=== PATIENT | male | born 1945 | race African-American/Black ===

== ENCOUNTER 2021-06-27 07:05 | Emergency (ER) | payer MEDICARE, OTHER ==
[~2021-06-27] VITALS: Ht 182.9 cm; Wt 80.0 kg
[2021-06-27] MEDS ORDERED: AMLODIPINE 10MG TABLET PO ONE (07:30)
[2021-06-27 08:08] LABS: HEMATOCRIT. 45.3 % (42.0-52.0); MEAN CORPUSCULAR VOLUME 93.4 fL (80.0-94.0); MEAN PLATELET VOLUME 8.7 fl (7.4-10.4); PLATELET 184 x1000/uL (130-400); RED BLOOD CELL COUNT 4.85 mill/uL (4.7-6.1); RED CELL DISTRIBUTION WIDTH 12.8 % (11.6-14.6)
[2021-06-27 08:21] LABS: CHLORIDE 104 mEq/L (98-107)
[2021-06-27 08:43] LABS: PLATELET ESTIMATE NORMAL
[2021-06-27] MEDS ORDERED: AMLO5TAB88 MT (08:55)
[2021-06-27 09:23] VITALS: BP 190/89
[2021-06-27 09:49] LABS: CLARITY URINE CLEAR (CLEAR); COLOR URINE YELLOW (YELLOW); KETONES URINE NEGATIVE (NEGATIVE); LEUKOCYTE ESTERASE URINE NEGATIVE (NEGATIVE); NITRITE URINE NEGATIVE (NEGATIVE); OCCULT BLOOD URINE NEGATIVE (NEGATIVE); PROTEIN URINE 1+ (NEGATIVE); UROBILINOGEN URINE 0.2 E.U./dL (0.2-1.0)
== END 2021-06-27 09:15 | disposition home or self-care (01) ==
LOC: ER 07:05
DX: I10 Essential (primary) hypertension (principal); R51.9 Headache, unspecified
CPT/HCPCS: 36415; 71045; 80053; 81003; 83880; 84484; 85025; 93005; 99285

== ENCOUNTER 2021-10-26 21:28 | Emergency (ER) | payer OTHER ==
[~2021-10-26] VITALS: Ht 180.3 cm; Wt 77.0 kg
[~2021-10-26 21:28] MED LIST: AMLO5TAB88 MT
[2021-10-27 00:08] VITALS: BP 142/76
== END 2021-10-27 00:31 ==
LOC: ER 21:28
DX: S01.01XA Laceration without foreign body of scalp, initial encounter (principal); M79.10 Myalgia, unspecified site; F43.10 Post-traumatic stress disorder, unspecified; Y08.89XA Assault by other specified means, initial encounter; Y93.89 Activity, other specified; Y92.9 Unspecified place or not applicable; Z02.79 Encounter for issue of other medical certificate
CPT/HCPCS: 99283